=== PATIENT | female | born 1985 | race Caucasian/White ===

== ENCOUNTER 2017-06-24 10:24 | Inpatient (IN) | payer MEDICAID ==
[2017-06-24] MEDS ORDERED: Sodium Chloride 0.9% 10 ML Syringe FLUSH PRN (11:59)
[2017-06-24] MEDS ORDERED: Penicillin G Potassium 5 MILLUNITS in Sodium Chloride 0.9% 100 ML IV ONE (12:00)
[2017-06-24] MEDS ORDERED: Oxytocin 10 Units/1 ML SDV ONE ×2 (12:10→12:18)
--- NOTE | 2017-06-24 12:12 | PCM.LDHP ---
L&D History of Present Illness - General Date of Service: 06/24/17 (PROM, GBS pos) Admit Problem/Dx: Patient Status Order with Admit Dx/Problem 06/24/17 11:59 Patient Status [ADT] Routine Admission Diagnosis/Problem Admission Diagnosis/Problem Premature rupture of membranes Source of Information: Patient History Limitations: Reports: No Limitations - History of Present Illness Introduction:: ESTRELLA 07/11/17 based on US. Today is 37 weeks, was scheduled for RCS on 07/04/17. This morning had leaking fluids and started vivi. Is GBS positive. Presented to L&D for assessment. Contractions every 6-7 minutes and strong. CE: 1 cm. FHT baseline 145 with accelerations, Cat one strip. Amino sure swab positive this morning for ruptured membranes. ABO O pos Rubella immune, HIV neg GBS positive Hep B & C NR. 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: : 2 Para: 1 LMP (Approximate): (ESTRELLA 07/11/17 37 weeks) Social & Family History - Tobacco Use Smoking Status *Q: Current Every Day Smoker Years of Tobacco use: 20 Packs/Tins Daily: 1 Second Hand Smoke Exposure: Yes - Recreational Drug Use Recreational Drug Use: No Recreational Drug Type: Reports: Methamphetamine H&P Review of Systems - Review of Systems: Review Of Systems: See Below General: Reports: No Symptoms HEENT: Reports: No Symptoms Pulmonary: Reports: No Symptoms Cardiovascular: Reports: No Symptoms Gastrointestinal: Reports: No Symptoms Genitourinary: Reports: No Symptoms Musculoskeletal: Reports: No Symptoms Skin: Reports: No Symptoms Psychiatric: Reports: No Symptoms Neurological: Reports: No Symptoms Hematologic/Lymphatic: Reports: No Symptoms Immunologic: Reports: No Symptoms L&D Exam - Exam Exam: See Below - Vital Signs Weight: 255 lb - OB Specific Contraction Duration (sec): 70-80 Contraction Frequency (min): 6-7 Contraction Intensity: Moderate Movement: Active Heart Tones: Present Heart Tones per Min: 145 Heart Rate (FHR) Variability: Moderate (6-25 bmp) Presentation: Vertex Estimated Weight: 6 pounds - Roy Score Roy Score Cervix Position: Posterior Roy Score Consistency: Soft Roy Score Effacement: 51-70% Roy Score Dilation: 1-2 cm Roy Score Infant's Station: -1 ,0 Roy Score Total: 7 - Exam General: Alert, Oriented HEENT: PERRLA, Conjunctiva Clear, EACs Clear, EOMI, Hearing Intact, Mucosa Moist & [place], Nares Patent, Normal Nasal Septum, Posterior Pharynx Clear, TMs Clear Neck: Supple, Trachea Midline Lungs: Clear to Auscultation, Normal Respiratory Effort Cardiovascular: Regular Rate, Regular Rhythm GI/Abdominal Exam: Normal Bowel Sounds, Soft, Non-Tender, No Organomegaly, No Distention, No Abnormal Bruit, No Mass, Pelvis Stable Rectal Exam: Normal Exam, Normal Rectal Tone Genitourinary: Normal external exam, Normal bimanual exam, Normal speculum exam Back Exam: Normal Inspection, Full Range of Motion Extremities: Normal Inspection, Normal Range of Motion, Non-Tender, No Pedal Edema, Normal Capillary Refill Skin: Warm, Dry, Intact Neurological: Cranial Nerves Intact, Reflexes Equal Bilateral Psychiatric: Alert, Normal Affect, Normal Mood - Patient Data Lab Results Last 24 hrs: Laboratory Results - last 24 hr 06/24/17 06/24/17 Range/Units 10:36 10:46 Urine Color Yellow Urine Appearance Clear Urine pH 6.0 (4.5-8.0) Ur Specific [place] 1.020 (1.008-1.030) Urine Protein Negative (NEGATIVE) mg/dL Urine Glucose (UA) Normal (NEGATIVE) mg/dL Urine Ketones Negative (NEGATIVE) mg/dL Urine Occult Blood Moderate (NEGATIVE) Urine Nitrite Negative (NEGATIVE) Urine Bilirubin Negative (NEGATIVE) Urine Urobilinogen Normal (NORMAL) mg/dL Ur Leukocyte Esterase Negative (NEGATIVE) Urine RBC 0-5 (0-5) Urine WBC 0-5 (0-5) Ur Epithelial Cells Many Amorphous Sediment Few Urine Bacteria Not seen Urine Mucus Not seen Membrane Rupture Positive H (NEGATIVE) - Problem List (1) GBS (group B Streptococcus carrier), +RV culture, currently SNOMED Code(s): 3400030057748, 5284903121623 ICD Code: O99.820 - STREPTOCOCCUS B CARRIER STATE COMPLICATING Status: Acute Current Visit: Yes (2) Premature rupture of membranes SNOMED Code(s): 04989212 ICD Code: O42.90 - DAMIR ROM, 7TH0 BETW RUPT & ONST LABR, UNSP WEEKS OF GEST Status: Acute Current Visit: Yes Qualifiers: PROM onset of labor timing: onset of labor within 24 hours of rupture PROM gestational age: -third trimester Qualified Code(s): O42.013 - premature rupture of membranes, onset of labor within 24 hours of rupture, third trimester Problem List Initiated/Reviewed/Updated: Yes Orders Last 24hrs: Active Orders 24 hr Category Date Time Status Patient Status [ADT] Routine ADT 06/24/17 11:59 Ordered Antiembolic Devices [RC] .Routine Care 06/24/17 12:02 Ordered Heart Tones [RC] CONTINUOUS Care 06/24/17 12:02 Ordered Notify Provider [RC] PRN Care 06/24/17 12:01 Ordered OB Check [OM.PC] Click to Edit Care 06/24/17 10:36 Ordered Peripheral IV Care [RC] . DIRECTED Care 06/24/17 12:00 Ordered Procedure Site Prep Instruct [RC] ASDIRECTED Care 06/24/17 11:59 Ordered RT Incentive Spirometry [RC] PER UNIT ROUTINE Care 06/24/17 11:59 Ordered VTE/DVT Education [RC] Click to Edit Care 06/24/17 12:02 Ordered Vital Signs [RC] PER UNIT ROUTINE Care 06/24/17 11:59 Ordered Vital Signs [RC] PER UNIT ROUTINE Care 06/24/17 12:01 Ordered CBC W/O DIFF,HEMOGRAM [HEME] Stat Lab 06/24/17 12:02 Ordered CBC WITH AUTO DIFF [HEME] Urgent Lab 06/24/17 12:01 Ordered COMPREHENSIVE METABOLIC PN,CMP [CHEM] Urgent Lab 06/24/17 12:01 Ordered DRUG SCREEN, URINE [URCHEM] Stat Lab 06/24/17 12:02 Uncollected TYPE AND SCREEN [BBK] Urgent Lab 06/24/17 12:01 Ordered Penicillin G Potassium [Pfizerpen] 5 millunits Med 06/24/17 12:00 Active Sodium Chloride 0.9% [Normal Saline] 100 ml IV ONETIME Sodium Chloride 0.9% [Saline Flush] Med 06/24/17 11:59 Ordered 10 ml FLUSH ASDIRECTED PRN DVT/VTE Prophylaxis Reflex [OM.PC] Routine Oth 06/24/17 12:01 Ordered Peripheral IV Insertion Adult [OM.PC] Routine Oth 06/24/17 11:59 Ordered Schedule Procedure [COMM] Per Unit Routine Oth 06/24/17 11:59 Ordered Resuscitation Status Routine Resus Stat 06/24/17 11:59 Ordered Medication Orders Penicillin G Potassium 5 (millunits/ Sodium Chloride) 100 mls @ 200 mls/hr IV ONETIME ONE Stop: 06/24/17 12:29 Sodium Chloride (Saline Flush) 10 ml FLUSH ASDIRECTED PRN PRN Reason: Keep Vein Open Assessment/Plan Comment:: 06/24/17 Premature rupture of membranes and GBS positive mother Repeat c section for previous uterine surgery smoker previous history of meth use, 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 Steffen Elizabeth
[2017-06-24] MEDS ORDERED: cefOXitin 2 GM Vial ONE (13:02)
[2017-06-24] MEDS ORDERED: Lactated Ringers 1,000 ML ONE ×2 (13:02)
[2017-06-24] MEDS ORDERED: ePHEDrine 50 MG/ML SDV ONE (13:02)
[2017-06-24] MEDS: cefOXitin 1 GM Vial ONE ×2 (13:08→13:30)
[2017-06-24] MEDS: Oxytocin 10 Units/1 ML SDV ONE ×2 (13:08→13:14)
[2017-06-24] MEDS ORDERED: Ondansetron 4 MG/2 ML SDV ONE (13:27)
[2017-06-24] MEDS ORDERED: fentaNYL 250 MCG/5 ML SDV ONE (13:29)
[2017-06-24] MEDS ORDERED: HYDROmorphone/Normal Saline 15 MG/30 ML PCA IV PRN (14:02)
[2017-06-24] MEDS ORDERED: Ondansetron 4 MG/2 ML SDV IVPUSH PRN (14:49)
[2017-06-24] MEDS ORDERED: Naloxone 0.4 MG/ML SDV IV PRN (14:51)
[2017-06-24] MEDS: Nicotine 21 MG/24 Hr Patch TRDERM SCH (15:21)
[2017-06-24] MEDS: hydrOXYzine HCl 100 MG/2 ML SDV IM PRN ×2 (15:26→19:43)
[2017-06-24] MEDS: cefOXitin 2 GM in Sodium Chloride 0.9% 50 ML IV SCH ×2 (18:09→23:16)
[2017-06-24] MEDS ORDERED: LORazepam 2 MG/ML SDV IVPUSH PRN (18:33)
[2017-06-24] MEDS ORDERED: Meperidine PF 100 MG/ML Syringe IM ONE (18:35)
[2017-06-24] MEDS ORDERED: HYDROmorphone/Normal Saline 15 MG/30 ML PCA IV SCH (18:45)
[2017-06-24] MEDS: Dextrose 5%-Lactated Ringers 1,000 ML IV SCH (19:54)
[2017-06-25] MEDS: hydrOXYzine HCl 100 MG/2 ML SDV IM PRN ×2 (00:51→21:31)
[2017-06-25] MEDS: Dextrose 5%-Lactated Ringers 1,000 ML IV SCH ×2 (02:07→10:03)
[2017-06-25] MEDS: cefOXitin 2 GM in Sodium Chloride 0.9% 50 ML IV SCH (05:01)
--- NOTE | 2017-06-25 08:36 | PN ---
DATE OF SERVICE: 06/25/2017 SUBJECTIVE: Shrai is postop day #1 following a repeat and repair of incisional hernia. She reports her pain is controlled. She has a Yu catheter in. Her urine output was 900. She has been n.p.o. IV intake was 2931. REVIEW OF SYSTEMS: Review of systems negative for any other pertinent positives and negatives. OBJECTIVE: GENERAL: Shari is a 32-year-old female. She is alert and orientated. VITAL SIGNS: TPR is 99.3, 68, 18, blood pressure 95/57. HEENT: Negative. NECK: Supple. HEART: Regular rate and rhythm. LUNGS: Clear. ABDOMEN: Dressing dry and intact. Yu catheter is draining clear shira urine. EXTREMITIES: Without peripheral edema. ASSESSMENT: Repeat and repair of incisional hernia on 06/24/2017. PLAN: 1. Regular diet. 2. Discontinue Yu catheter. 3. Decrease IV to 80 mL/h. 4. Continue SAMPLE TAKER OPERATOR. 5. We will evaluate p.r.n. or in the a.m. Marly Ye PA-C /[id number]
[2017-06-25] MEDS: HYDROmorphone 1 MG/ML Syringe IVPUSH PRN ×3 (08:50→15:55)
[2017-06-25] MEDS: Acetaminophen/oxyCODONE 325-5 MG Tab PO PRN ×4 (08:52→22:22)
[2017-06-25] MEDS: Docusate Sodium 100 MG Cap PO SCH ×2 (10:03→21:31)
[2017-06-25] MEDS: Nicotine 21 MG/24 Hr Patch TRDERM SCH (10:04)
[2017-06-25] MEDS: Ibuprofen 600 MG Tab PO PRN (16:50)
[2017-06-26] MEDS: Ibuprofen 600 MG Tab PO PRN ×4 (02:18→23:42)
[2017-06-26] MEDS: Acetaminophen/oxyCODONE 325-5 MG Tab PO PRN ×5 (03:09→20:52)
[2017-06-26] MEDS ORDERED: Magnesium Hydroxide 400 MG/5 ML Susp 30 ML Cup PO ONE (08:00)
--- NOTE | 2017-06-26 09:07 | PN ---
DATE OF SERVICE: 06/26/2017 SUBJECTIVE: Shari is postop day #2 following a section. She had a ChartMaxx of 99.2. Oral intake 2000. Urinary output, she has been voiding without measuring on her own. Pain is controlled with current medications. OBJECTIVE: GENERAL: Shari Bernal is a 32-year-old female. She is alert and orientated. VITAL SIGNS: TPR is 99.2, 75, 18, blood pressure 132/73. HEENT: Negative. NECK: Supple. HEART: Regular rate and rhythm. LUNGS: Clear. ABDOMEN: Soft, minimally tender. Aquacel occlusive dressing is on. EXTREMITIES: Without peripheral edema or calf pain. ASSESSMENT: Repeat and repair of incisional hernia. Date of surgery 06/24/2017. Surgeon, Joey Elizabeth MD. PLAN: 1. Milk of magnesia 30 mL p.o. one time today. 2. May shower. 3. We will evaluate p.r.n. or in the a.m. Plan to discharge in the a.m. Marly Ye PA-C /[id number]
[2017-06-26] MEDS: Docusate Sodium 100 MG Cap PO SCH ×2 (09:23→20:52)
[2017-06-26] MEDS: Nicotine 21 MG/24 Hr Patch TRDERM SCH (09:24)
[2017-06-27] MEDS: Acetaminophen/oxyCODONE 325-5 MG Tab PO PRN (04:26)
[2017-06-27] MEDS: Ibuprofen 600 MG Tab PO PRN (06:24)
[2017-06-27 07:11] VITALS: BP 132/67
--- NOTE | 2017-06-27 11:14 | DISCH ---
ADMISSION DIAGNOSES: Term , premature rupture of membranes, and group B streptococcus carrier. DISCHARGE DIAGNOSES: Repeat and repair of incisional hernia. Date of surgery, 06/24/2017. Surgeon, Joey Elizabeth MD. HISTORY: Shari is a 32-year-old female who, based on ultrasound, was 37 weeks, and she was scheduled for a repeat on 07/04/2017. On the morning of the , she started leaking fluid and having contractions. After preoperative evaluation and discussion of possible risks and possible complications, she wished to proceed with surgical procedure. HOSPITAL COURSE: Shari had her for premature rupture of membranes and GBS positive, on 06/24/2017. She had no operative complications. On postop day #1, she was started on a regular diet. Her Yu catheter was discontinued. Later in the day, she was changed to oral pain medication, and her IV was discontinued. On postop day #2, she was given milk of magnesia, and she was able to shower. On postop day #3, she was able to be discharged to home. Her pain was well managed. Her activity was good. Vital signs were stable. PHYSICAL EXAMINATION: GENERAL: Shari Bernal is a 32-year-old female. VITAL SIGNS: Height is 5 feet 5 inches. Weight is 255 pounds. BMI is 42.4. TPR 98.5, 86, 18, and blood pressure 132/67. HEENT: Negative. NECK: Supple. HEART: Regular rate and rhythm. LUNGS: Clear. ABDOMEN: Soft and tender to palpate. The Aquacel dressing remains on, but will be removed prior to discharge. EXTREMITIES: Without peripheral edema and no calf tenderness. DISPOSITION: Discharged to home. CONDITION: Stable and improving. FOLLOWUP APPOINTMENT: Marly Ye PA-C, on 07/04/2017 at 10:15 a.m. Follow up with Stephanie Piña, certified nurse ham pumper, per her direction. DISCHARGE MEDICATIONS: Home medications; 1. Percocet 5/325 mg 1 to 2 tabs every 4 hours p.r.n. pain, #30. 2. Colace 100 mg oral twice daily, #60. 3. Ibuprofen 600 mg q.6 hours p.r.n. pain, #60. 4. She is to resume her vitamins. DISCHARGE DIET: Usual diet as tolerated. Drink 8 to 10 glasses of water a day. ACTIVITY: No lifting more than baby and car seat for 6 weeks[address] Driving, do not drive while on narcotic pain medication. Shower/bathing, may shower. DISCHARGE INSTRUCTIONS: Notify provider if any fever, increased pain, or dressing. Wound incision care, keep site clean and dry.
--- NOTE | 2017-07-03 11:57 | OR ---
DATE OF PROCEDURE: 06/24/2017 PREOPERATIVE DIAGNOSIS: Term with history of previous section, presenting in labor. POSTOPERATIVE DIAGNOSES: 1. Term with history of previous section, presenting in labor. 2. Incisional hernia. OPERATIVE PROCEDURES: 1. Repeat section (48785). 2. Repair of incisional hernia (76384). ANESTHESIA: Spinal. TEACHERS ASSISTANT: Yennifer Piña CNM INDICATION FOR PROCEDURE: This is a 32-year-old presenting with term with a history of previous section, now presenting in labor. Plan is to proceed with a section. Potential risks including bleeding, infection, injury to mother and/or baby were reviewed, and the mother wishes to proceed. DETAILS OF PROCEDURE: The patient was taken to the operating room and after spinal anesthetic was placed, a Yu catheter was inserted, and the patient was placed in a supine position with a roll underneath the right hip. The abdomen was then prepped and draped. Previous Pfannenstiel-type incision was made and carried down through the skin and subcutaneous tissue. The subrectus sheath flaps were then raised superiorly and inferiorly. At that point, the patient was noted to have some degree of incisional hernia where the rectus musculature had more or less dehisced in the lower midline allowing prolapse of bladder and perivesical fat into that area. This area was then reduced and the midline peritoneum then divided. This then allowed the peritoneal reflection of bladder on the uterus to be divided. A low-transverse incision was made. A viable female was delivered through a vertex presentation. The head was face down and quite deep within the pelvis and Yennifer Piña needed to push the baby upward somewhat from below. This then allowed adequate delivery. The baby was then removed from the field after the cord was clamped and cut and routine care given per Yennifer Piña. The scores at 1 and 5 minutes were 6 and 8. At that point, the placental and membranes were delivered. The patient was given IV and intrauterine oxytocin and IV cefoxitin. The uterus was then closed with 2 layers of 2-0 Vicryl stitch as was the peritoneal reflection of the bladder on the uterus. At that point, the midline fascia was then approximated on the lower aspect of this. The hernia was closed by means of a running #2 Vicryl stitch, reapproximating the rectus musculature as it came down into the suprapubic area. The last stitch incorporated a bite of the pubic periosteum to help secure the hernia repair at that level. At that point, the anterior rectus sheath was then closed with a #2 Vicryl stitch, and the skin closed with a 4-0 Vicryl subcuticular stitch. Dressing was applied. The patient was taken to the recovery room in a satisfactory condition. Nurse lipcoat sprayer, Yennifer Piña, played an essential role in assisting in this case, helping to position the patient, retract structures as needed, as well as suturing and cutting sutures, and pushing the baby from the vaginal probe upward to allow satisfactory delivery, as well as continuing in the care. Her presence improved patient safety and decreased the operative time. Joey Elizabeth MD /[id number]
== END 2017-06-27 10:02 | disposition home or self-care (01) | DRG 766 ==
LOC: JP.OBCHECK 10:24 → JP.OB 11:45 → OBSVTOIN 11:59 → JP.MS 16:30
PROVIDERS: ADMIT Nurse Practitioner Family; ATTEND Nurse Practitioner Family
PROC: 10D00Z1 Extraction of Products of Conception, Low, Open Approach (ICD-10-PCS; principal; 2017-06-24)
PROC: 0WQF0ZZ Repair Abdominal Wall, Open Approach (ICD-10-PCS; 2017-06-24)
DX: O42.013 Preterm premature rupture of membranes, onset of labor within 24 hours of rupture, third trimester (principal); O99.824 Streptococcus B carrier state complicating childbirth; O99.334 Smoking (tobacco) complicating childbirth; Z3A.37 37 weeks gestation of pregnancy; Z37.0 Single live birth; O34.211 Maternal care for low transverse scar from previous cesarean delivery; O75.89 Other specified complications of labor and delivery; K43.2 Incisional hernia without obstruction or gangrene; Z88.8 Allergy status to other drugs, medicaments and biological substances; F15.11 Other stimulant abuse, in remission; F12.11 Cannabis abuse, in remission
CPT/HCPCS: 36415; 59409; 80053; 80305; 81001; 84112; 85025; 86850; 86900; 86901; 88307; 99211; A9270-GY; J0694; J1170; J2405; J2540; J2590; J3010; J3410; J7030; J7042; J7050; J7120